=== PATIENT | female | born 1995 | race African-American/Black ===

== ENCOUNTER 2018-07-04 01:31 | Emergency (ER) | payer MEDICAID ==
[~2018-07-04] VITALS: Ht 157.5 cm; Wt 53.0 kg
[2018-07-04] MEDS ORDERED: DEXAMETHASONE 10 MG/ML VIAL IM ONE (03:15)
[2018-07-04] MEDS ORDERED: HYDROCODONE/ACETAMINOPHEN 5/325MG TABLET PO ONE (03:15)
[2018-07-04 03:22] VITALS: BP 129/83
== END 2018-07-04 03:36 | disposition home or self-care (01) ==
LOC: ER 03:02
DX: K02.9 Dental caries, unspecified (principal)
CPT/HCPCS: 96372; 99283; J1100